=== PATIENT | female | born 1990 | race African-American/Black ===

== ENCOUNTER 2023-11-03 19:57 | Emergency (ER) | payer OTHER ==
[~2023-11-03] VITALS: Ht 167.6 cm; Wt 80.0 kg
[2023-11-03 20:19] VITALS: O2SAT 100
[2023-11-03] MEDS: IBUPROFEN 400MG TABLET PO ONE (21:08)
[2023-11-03 22:00] VITALS: BP 128/88; PULSE 83; RESP 18; TEMP 98.3
== END 2023-11-03 22:00 | disposition home or self-care (01) ==
LOC: ER 19:57
DX: S50.812A Abrasion of left forearm, initial encounter (principal); J45.909 Unspecified asthma, uncomplicated; V49.49XA Driver injured in collision with other motor vehicles in traffic accident, initial encounter; Y93.89 Activity, other specified; Y92.89 Other specified places as the place of occurrence of the external cause; Y99.8 Other external cause status
CPT/HCPCS: 71045; 93005; 99283